=== PATIENT | male | born 1960 | race Caucasian/White ===

== ENCOUNTER → 2019-09-29 15:44 | Outpatient (BNVA) | payer SELFPAY | PROVIDERS: Visit Provider Specialist | DX: G40.109 Localization-related (focal) (partial) symptomatic epilepsy and epileptic syndromes with simple partial seizures, not intractable, without status epilepticus (principal); G43.009 Migraine without aura, not intractable, without status migrainosus; Z87.891 Personal history of nicotine dependence | CPT/HCPCS: 99214 ==